=== PATIENT | female | born 1950 | race Caucasian/White ===

== ENCOUNTER 2024-01-14 08:00 | Outpatient (RCR) | payer MEDICARE ==
[~2024-01-14 08:00] MED LIST: ANTIVERT25 MG PO; ATORVASTATIN CA10 MG PO; AVAPRO300 MG PO; B COMPLEX1 EACH PO; BENICAR20 MG PO; CATAPRES-TTS 11 EACH TD; CLOBETASOL PRO0.5 GM TOP; CLONIDINE HCL0.1 MG PO; FLINTSTONES1 EACH PO; FOLIC ACID1 MG PO; HYDRALAZINE HC100 MG PO; ISOSORBIDE MONO30 MG PO; JANUVIA100 MG PO; MUPIROCIN 2% OINT 22 GM TUBE ONE; MUPIROCIN22 GM TOP; NASCOBAL2.3 ML; NEURONTIN300 MG PO; NIFEDIPINE ER90 M1 PO; OMEPRAZOLE20 MG PO; SINGULAIR10 MG PO; SPIRONOLACTONE25 MG PO; SYNTHROID112 MCG PO; TIZANIDINE HCL4 M1 PO; TRIAMTERENE-HC1 EAC2 PO; ULTRAM 50MG50 MG PO; VITAMIN D2000 UNI1 PO
[2024-01-14] MEDS ORDERED: LIDOCAINE/PRILOCAINE 2.5-2.5% KIT ONE (13:06)
[2024-01-14] MEDS ORDERED: LIDOCAINE VISC 2% SOLN 15 ML UDC ONE (13:06)
[2024-01-21] MEDS ORDERED: TOPROL XL100 MG PO (15:16)
[2024-01-21] MEDS ORDERED: NIFEDIPINE ER30 M1 PO (15:16)
[2024-01-21] MEDS ORDERED: LEVOTHYROXINE112 MCG PO ×2 (15:16)
[2024-01-21] MEDS ORDERED: LEVOCETIRIZINE D5 MG PO (15:16)
[2024-01-21] MEDS ORDERED: CLONIDINE1 EAC2 TOP (15:16)
[2024-01-21] MEDS ORDERED: LASIX20 MG PO ×2 (15:16)
[2024-01-21] MEDS ORDERED: ATORVASTATIN CA10 MG PO (15:16)
[2024-01-22] MEDS ORDERED: ACETAMINOPHEN-1 EAC4 PO (07:12)
== END 2024-01-18 12:13 | disposition home or self-care (01) ==
LOC: WCC 08:00
PROVIDERS: ATTEND Plastic Surgery
DX: T21.22XA Burn of second degree of abdominal wall, initial encounter (principal); T24.211A Burn of second degree of right thigh, initial encounter

== ENCOUNTER → 2024-01-22 | Day surgery (SDC) | payer MEDICARE ==
[2024-01-21 15:34] LABS: BASOPHILS % 0.2 % (0.0-1.0); EOSINOPHILS # (AUTO) 0.1 (0.0-0.4); EOSINOPHILS % 1.2 % (0.0-6.0); HEMATOCRIT 33.5 % (34.2-44.1); HEMOGLOBIN 10.4 g/dL (12.0-16.0); LYMPHOCYTES # (AUTO) 1.3 (1.0-3.2); LYMPHOCYTES % 31.6 % (18.0-39.1); MEAN CORPUSCULAR VOLUME 96.5 fL (81-99); MONOCYTES # (AUTO) 0.5 (0.2-0.8); MONOCYTES % 12.7 % (4.4-11.3); NEUTROPHILS # (AUTO) 2.1 (2.1-6.9); NEUTROPHILS % 52.6 % (38.7-80.0); PLATELET COUNT 125 x10e3/uL (140-360); RED BLOOD COUNT 3.47 x10e6/uL (3.6-5.1); RED CELL DISTRIBUTION WIDTH 16.5 % (11.7-14.4); WHITE BLOOD COUNT 4.08 x10e3/uL (4.8-10.8)
[~2024-01-22] MED LIST changes: +ACETAMINOPHEN-1 EAC4 PO; +BUPIVACAINE HCL 0.5% INJ 30 ML VIAL INJ ONE; +CLONIDINE1 EAC2 TOP; +FENTANYL CITRATE/PF 100MCG/2 ML INJ ONE; +LASIX20 MG PO; +LEVOCETIRIZINE D5 MG PO; +LEVOTHYROXINE112 MCG PO; +LIDOCAINE 1% W/EPINEPHRINE 20 ML VIAL ONE; +MIDAZOLAM HCL 2 MG/2 ML VIAL ONE; +NIFEDIPINE ER30 M1 PO; +ONDANSETRON HCL INJ 2MG/ML 2ML 2 MG/ML VIAL ONE; +TOPROL XL100 MG PO
[2024-01-22] MEDS: LACTATED RINGER'S 1,000 ML ONE (06:05)
[2024-01-22 07:05] VITALS: TEMP 97.5
[2024-01-22 07:20] VITALS: BP 137/61; PULSE 70; RESP 16; O2SAT 94
== END | disposition home or self-care (01) ==
LOC: OR 05:41
PROVIDERS: ATTEND Plastic Surgery
DX: T21.32XA Burn of third degree of abdominal wall, initial encounter (principal); I10 Essential (primary) hypertension; J45.909 Unspecified asthma, uncomplicated; E11.9 Type 2 diabetes mellitus without complications; K21.9 Gastro-esophageal reflux disease without esophagitis; X12.XXXA Contact with other hot fluids, initial encounter; Z01.810 Encounter for preprocedural cardiovascular examination; Z01.812 Encounter for preprocedural laboratory examination; Z79.84 Long term (current) use of oral hypoglycemic drugs; Z79.899 Other long term (current) drug therapy
CPT/HCPCS: 36415; 85025; 93005; J0690; J2250; J2405

== ENCOUNTER 2024-02-11 08:03 | Outpatient (RCR) | payer MEDICARE ==
[~2024-02-11 08:03] MED LIST changes: -BUPIVACAINE HCL 0.5% INJ 30 ML VIAL INJ ONE; -FENTANYL CITRATE/PF 100MCG/2 ML INJ ONE; -LIDOCAINE 1% W/EPINEPHRINE 20 ML VIAL ONE; +LIDOCAINE VISC 2% SOLN 15 ML UDC ONE; +LIDOCAINE/PRILOCAINE 2.5-2.5% KIT ONE; -MIDAZOLAM HCL 2 MG/2 ML VIAL ONE; -ONDANSETRON HCL INJ 2MG/ML 2ML 2 MG/ML VIAL ONE
[2024-02-11] MEDS ORDERED: LIDOCAINE VISC 2% SOLN 15 ML UDC ONE (13:55)
== END 2024-02-20 ==
LOC: WCC 08:03
PROVIDERS: ATTEND Plastic Surgery
DX: T21.22XA Burn of second degree of abdominal wall, initial encounter (principal); T24.211A Burn of second degree of right thigh, initial encounter

== ENCOUNTER 2024-03-17 08:27 | Outpatient (RCR) | payer MEDICARE ==
[~2024-03-17 08:27] MED LIST changes: -MUPIROCIN 2% OINT 22 GM TUBE ONE
== END 2024-03-22 ==
LOC: WCC 08:27
PROVIDERS: ATTEND Plastic Surgery
DX: T21.22XA Burn of second degree of abdominal wall, initial encounter (principal)